=== PATIENT | female | born 1990 | race Hispanic/Latino ===

== ENCOUNTER 2017-04-30 21:07 | Emergency (ER) | payer OTHER ==
[2017-04-30 21:10] VITALS: BMI 24.3
[2017-04-30 21:12] VITALS: BP 125/75; PULSE 71; RESP 16; TEMP 99.6; O2SAT 99
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
--- NOTE | 2017-05-01 11:30 | RAD ---
PROCEDURE: Radiographs of the left elbow. HISTORY: fall COMPARISON: No prior. FINDINGS: BONES: Normal. No fracture. JOINTS: Normal. No osteoarthritis. SOFT TISSUES: Normal. JOINT EFFUSION: None. OTHER FINDINGS: None IMPRESSION: No evidence of acute fracture or dislocation or significant joint effusion.
== END 2017-04-30 21:59 | disposition home or self-care (01) ==
LOC: H.ER 21:07
DX: S50.02XA Contusion of left elbow, initial encounter (principal); W19.XXXA Unspecified fall, initial encounter; Y92.89 Other specified places as the place of occurrence of the external cause